=== PATIENT | male | born 1965 | race Caucasian/White ===

== ENCOUNTER 2025-04-05 13:37 | Emergency (ER) | payer BC, SELFPAY ==
[2025-04-05 13:45] VITALS: BP 183/104
[2025-04-05 14:16] VITALS: BMI 51.6
[2025-04-05 14:20] VITALS: BP 125/82
--- NOTE | 2025-04-05 14:35 | ED.MUSCINJ ---
HPI-Injury
General
Chief Complaint: Fall
Source: patient
Exam Limitations: none
Time Seen by Provider: 04/05/25 14:07
Nursing documentation reviewed up to this point in time: agreed with
History of Present Illness-Injury
Is this injury a work related problem?: No
Is pt an associate of [facility]?: No
Initial Injury comments:
Patient to the emergency department after a fall. States he been followed to [employer] and fell. He hit his head on the pavement. No LOC. He sustained a small superficial laceration to his right forehead. Injury occurred on Thursday.
Today he noted bruising around his left orbit. Brought self to the emergency department for evaluation. He is currently prescribed Eliquis for history of A-fib.
Past History
Past History
ED Past Medical History: Arrthythmia (afib), HTN, Hypercholesterolemia and NIDDM
Review of Systems
Review of Systems
Allergies reviewed?: Yes
All Other Systems: ROS reviewed and negative except as documented in HPI and ROS
Constitutional: Reports no symptoms
EENT: Reports other (Bruising to left orbit)
Respiratory: Reports no symptoms
Cardiac: Reports no symptoms
ABD/GI: Reports no symptoms
: Reports no symptoms
Musculoskeletal: Reports no symptoms
Skin: Reports other (Bruising to left orbit.)
Neurological: Reports no symptoms
Psychiatric: Reports no symptoms
Phy Exam
General Physical Exam
General Presentation: well appearing and no apparent distress
General age: appears stated age
General Skin: warm and dry
General Habitus: normal
General Mental: alert
Eye Exam
Eye Exam: PERRL, EOMI, conjunctiva normal, globe normal and other (No left orbital rim pain. Bruising present to left upper and lower eyelids. No evidence of entrapment)
Neurological Exam
Neurological Exam: alert, oriented x3, CN II-XII intact, no motor deficits, no sensory deficits, speech normal and normal gait
Roberts Coma Scale
Eye Opening: Spontaneous
Verbal Response: Oriented
Motor Response: Obeys Commands
GCS Total Score: 15
Musculoskeletal Exam
Musculoskeletal Exam: full ROM, neuro vasc intact and other (He denies any neck or back pain. He has full range of motion to bilateral upper and lower extremities)
Skin Exam
Skin Exam: normal color, warm/dry, no rash and other (1 cm superficial laceration noted to left forehead. No active bleeding. Granulation present. No closure necessary.)
Psychiatric Exam
Psychiatric Exam: normal mood/affect
Injury Course
Orders/Labs/Results
Orders:
Orders
04/05/25 13:45
CT Head W/o Iv Contrast Urgent
Comment:
Reason For Exam: fall on thinner
04/05/25 14:[address] [CT Orbits W/o Iv Contrast] Urgent
Comment:
Reason For Exam: Trauma, attn left orbit
*Radiology
Radiology exam reviewed: radiology read reviewed
*Pulse Oximetry
SaO2: 98
Oxygen Mode of Delivery: Room air
Patient hypoxic: no
*Critical Care Note
Total Time (30-74mins, 75-104mins- exclusive of procedures): Not Applicable
Update Note
Update Note:
Patient to the emergency department with complaint of left orbit bruising. He reports falling on Thursday and developing a hematoma to the left side of his forehead. Today he woke up to find the left orbit bruising. He denies any headache or
dizziness no changes in vision. CT of head and orbits are both negative for acute findings. Discussed report with patient. He will continue to ice as needed and follow-up with his family doctor. He was given instructions on signs and symptoms to
return to the emergency department and he is agreeable to plan.
ED Attending Note
-
Portions of this chart may have been created with voice recognition software.� Occasional wrong word or��sound alike� substitutions may have occurred due to the inherent limitations of voice recognition software.
Discharge Plan
Departure
Patient Disposition: Home (Routine Discharge)
Date of Disposition: 04/05/25
Time of Disposition: 15:34
Patient with high blood pressure during this ER visit?: No
Condition: Good
Covid-19: Not Applicable
Discharge Problem:
Head injury
Instructions: Head Injury in Adults (DC), Contusion (DC)
Referrals:
Andriy White MD [Family Provider, Internal Medicine] - Follow up in 2-3 days
Activity Restrictions/Additional Instructions:
Return to the emergency department for any changes in/worsening of your symptoms, or for any further concerns.
Interventions
Interventions:
*Risk Screen - Suicide Last Done: 04/05/25 14:16
*General Assessment Last Done: 04/05/25 13:42
*Neglect/Abuse Screening Last Done: 04/05/25 14:16
*ED- Fall Risk Assessment Last Done: 04/05/25 14:16
*ED COVID-19 Vaccine History Last Done: 04/05/25 14:16
*ED Influenza Vaccine History Last Done: 04/05/25 14:16
*Nursing Disposition Last Done: 04/05/25 15:51
ED-Musculoskeletal Assessment Last Done: 04/05/25 14:16
ED- Neurological Assessment Last Done: 04/05/25 14:16
ED-Skin Assessment Last Done: 04/05/25 14:16
Discharge Date and Time
Discharge Date/Time: 04/05/25 15:50
Print Language: [id number]
--- NOTE | 2025-04-05 15:50 | EDRN ---
Reviewed discharge instructions with patient. Verbalized understanding. Ambulated with steady gait to the lobby.
[2025-04-05 15:51] VITALS: BP 128/80
== END 2025-04-05 15:50 | disposition home or self-care (01) ==
LOC: EMR 13:37
PROVIDERS: EMERGENCY PHYSICIAN Student in an Organized Health Care Education/Training Program; FAMILY PHYSICIAN Internal Medicine
DX: S05.12XA Contusion of eyeball and orbital tissues, left eye, initial encounter (principal); W19.XXXA Unspecified fall, initial encounter; E78.00 Pure hypercholesterolemia, unspecified; E11.9 Type 2 diabetes mellitus without complications; I10 Essential (primary) hypertension; I48.91 Unspecified atrial fibrillation; Z79.01 Long term (current) use of anticoagulants
CPT/HCPCS: 99284; 70450; 70480